=== PATIENT | male | born 1990 | race Caucasian/White ===

== ENCOUNTER 2017-07-26 08:52 | Emergency (ER) | payer OTHER ==
[2017-07-26] MEDS ORDERED: XYLOCAINE 1%/Epi 1:100000 MDV 20 ML IJ ONE (09:14)
--- NOTE | 2017-07-26 09:22 | ERPHSYRPT ---
- History of Present Illness Time Seen by Provider: 07/26/17 09:06 Source: patient, family () Patient Subjective Stated Complaint: pt states he noticed a red area to left upper arm 4 weeks ago. states it became better and then worse again. pt denies any injury. Triage Nursing Assessment: pt pink, warm, dry. pt has 3.5cm red area to left axilla. no drainage noted. no swelling to left upper arm. Physician History: CC: left armpit problems Hx: 27 y/o patient of Dr Pettit has redness, swelling, pain in left armpit. Worse over a month or better. No fever or chills. No other areas of swelling. Last tetanus vaccine 4 years ago. No allergies. Quality: painful Severity: mild Allergies/Adverse Reactions: No Known Drug Allergies Allergy (Verified 07/26/17 09:07) Home Medications: Omeprazole Magnesium [Prilosec Otc] 20 mg PO DAILY 01/05/17 [History] Hx Tetanus, Diphtheria Vaccination/Date Given: Yes (up to date) Hx Influenza Vaccination/Date Given: No Hx Pneumococcal Vaccination/Date Given: No Immunizations Up to Date: Yes - Review of Systems Constitutional: No Fever, No Chills Respiratory: No Cough Cardiac: No Chest Pain Skin: Skin Lesions (left axialla) Neurological: No Focal Weakness, No Parasthesia - Past Medical History Pertinent Past Medical History: Yes Neurological History: No Pertinent History ENT History: No Pertinent History Respiratory History: No Pertinent History Endocrine Medical History: No Pertinent History Musculoskeletal History: No Pertinent History GI Medical History: GERD Psycho-Social History: No Pertinent History - Past Surgical History Past Surgical History: Yes Other Surgical History: throat surgery - Social History Smoking Status: Current every day smoker How long have you smoked: 10 Exposure to second hand smoke: No Drug Use: none Patient Lives Alone: No - Nursing Vital Signs Nursing Vital Signs: Initial Vital Signs Temperature 98.2 F 07/26/17 09:01 Pulse Rate 83 07/26/17 09:01 Respiratory Rate 18 07/26/17 09:01 Blood Pressure 146/82 07/26/17 09:01 O2 Sat by Pulse Oximetry 96 07/26/17 09:01 Pain Scale Pain Intensity 5 - Physical Exam General Appearance: alert Eye Exam: PERRL/EOMI Ears, Nose, Throat Exam: normal ENT inspection, moist mucous membranes Neck Exam: supple Respiratory Exam: lungs clear Cardiovascular Exam: regular rate/rhythm Gastrointestinal/Abdomen Exam: soft, No tenderness, No distention Extremity Exam: normal inspection, normal range of motion Neurologic Exam: alert, oriented x 3, cooperative, No motor deficits Skin Exam: warm, dry, other (left axilla has red, indurated, fluctuant area likely abscess. Can not rule out node. ) Lymphatic Exam: No adenopathy, No inguinal node tender (L), No inguinal node tender (R) SpO2: 96 Oxygen Delivery: Room Air Procedures - Incision and Drainage Site: left axilla Anesthesia: 2% Lidocaine (with epi 3ml) Blade Size: scalpel I & D Procedure: betadine prep, sterile drapes applied, culture obtained Results: large amount pus (from small abscess which was visible on bedside sono prior to procedure. Minimal bleeding. No complications.) - Course Nursing assessment & vital signs reviewed: Yes Ordered Tests: Active Orders 24 hr Category Date Time Status Wound Care STAT Care 07/26/17 09:14 Active CULTURE,WOUND Stat Lab 07/26/17 09:15 Ordered Medication Summary Discontinued Medications Generic Name Dose Route Start Last Admin Trade Name Codey PRN Reason Stop Dose Admin Lidocaine/Epinephrine 5 ml 07/26/17 09:14 Xylocaine 1%/Epi 1:212710 Mdv 20 Ml IJ 07/26/17 09:15 STAT ONE Lidocaine/Epinephrine 5 ml 07/26/17 09:32 Xylocaine 2%-Epi 1:100,000 Mdv IJ 07/26/17 09:33 STAT ONE Lidocaine/Epinephrine Confirm 07/26/17 09:35 Xylocaine 2%-Epi 1:100,000 Mdv Administered 07/26/17 09:36 Dose 1 ml IJ .STK-MED ONE - Progress Progress Note: 07/26/17 09:21 Pt agrees for I&D. Discussed risks of bleeding, infection, injury to adjacent structures. Will need follow up. 07/26/17 10:05 Abscess instr given. Counseled pt/family regarding: diagnosis, need for follow-up - Departure Time of Disposition: 10:05 Departure Disposition: Home Clinical Impression: Cutaneous abscess of left axilla Condition: Stable Critical Care Time: No Referrals: EDIN PETTIT [Primary Care Provider] - Instructions: Methicillin-Resistant Staph Infection (MRSA), Incision and Drainage of a Skin Abscess Additional Instructions: Rx bactrim. Rx keflex. Warm compress and change dressing three times a day. Follow up with Dr Pettit as needed. Prescriptions: Cephalexin Mh 500 mg [Keflex 500 mg] 1 cap PO QID #40 capsule Smz/Tmp Ds Tablet [Bactrim Ds Tablet] 1 udtab PO BID #20 tablet
[2017-07-26] MEDS ORDERED: Xylocaine 2%-Epi 1:100,000 MDV IJ ONE ×2 (09:32→09:35)
[2017-07-26 10:19] VITALS: O2SAT 98
[2017-07-26 10:42] VITALS: BP 137/73; PULSE 68
== END 2017-07-26 10:42 | disposition home or self-care (01) ==
LOC: ED 08:52
PROC: 0H9CXZZ Drainage of Left Upper Arm Skin, External Approach (ICD-10-PCS; principal; 2017-07-26)
DX: L02.412 Cutaneous abscess of left axilla (principal)
CPT/HCPCS: 10060; 87070; 96372; 99284

== ENCOUNTER 2018-11-27 16:16 | Emergency (ER) | payer BC, OTHER ==
--- NOTE | 2018-11-27 16:52 | ERPHSYRPT ---
- History of Present Illness Time Seen by Provider: 11/27/18 16:40 Source: patient Exam Limitations: no limitations Patient Subjective Stated Complaint: back pain xc 1 hour [employer]..hx kidney stone.. has had frequency for the past 30 minutes Triage Nursing Assessment: alert and in no distress.. states back pain x 1 hour and frequency with urination. has hx kidney stone. denies injury to the back. Physician History: 28 y/o white male presents with flank pain and urinary frequency. pt has past h/ o ureterolithiasis. feels the same way. no abd pain. no n/v/d. Timing/Duration: hour(s) (1) Method of Injury: other (sudden onset) Quality: sharp, aching Back Pain Location: lumbar spine Severity of Pain-Max: moderate Severity of Pain-Current: mild Associated Symptoms: problems urinating, lower back pain, No fever, No constipation, No nausea, No vomiting Previous symptoms: same symptoms as today Allergies/Adverse Reactions: No Known Drug Allergies Allergy (Verified 07/26/17 09:07) Home Medications: Omeprazole Magnesium [Prilosec Otc] 20 mg PO DAILY 01/05/17 [History] Hx Tetanus, Diphtheria Vaccination/Date Given: Yes (up to date) Hx Influenza Vaccination/Date Given: No Hx Pneumococcal Vaccination/Date Given: No - Review of Systems Constitutional: No Symptoms Eyes: No Symptoms Ears, Nose, & Throat: No Symptoms Respiratory: No Symptoms Cardiac: No Symptoms, No Chest Pain, No Palpitations, No Syncope Abdominal/Gastrointestinal: No Symptoms, No Abdominal Pain, No Nausea, No Vomiting, No Diarrhea Genitourinary Symptoms: Frequency, Flank Pain Musculoskeletal: Back Pain Skin: No Symptoms Neurological: No Symptoms Psychological: No Symptoms Endocrine: No Symptoms Hematologic/Lymphatic: No Symptoms Immunological/Allergic: No Symptoms All Other Systems: Reviewed and Negative - Past Medical History Pertinent Past Medical History: Yes Neurological History: No Pertinent History ENT History: No Pertinent History Respiratory History: No Pertinent History Endocrine Medical History: No Pertinent History Musculoskeletal History: No Pertinent History GI Medical History: GERD Psycho-Social History: No Pertinent History - Past Surgical History Past Surgical History: Yes Neuro Surgical History: No Pertinent History Cardiac: No Pertinent History Respiratory: No Pertinent History Gastrointestinal: No Pertinent History Genitourinary: No Pertinent History Musculoskeletal: No Pertinent History Male Surgical History: No Pertinent History Other Surgical History: throat surgery - Social History Smoking Status: Never smoker How long have you smoked: 10 Exposure to second hand smoke: No Drug Use: none Patient Lives Alone: No - Nursing Vital Signs Nursing Vital Signs: Initial Vital Signs Temperature 98.2 F 11/27/18 16:42 Pulse Rate 87 11/27/18 16:42 Respiratory Rate 16 11/27/18 16:42 Blood Pressure 155/87 11/27/18 16:42 O2 Sat by Pulse Oximetry 97 11/27/18 16:42 Pain Scale Pain Intensity [Lower Back] 2 Pain Intensity 0 - Physical Exam General Appearance: no apparent distress, alert, anxiety Eye Exam: PERRL/EOMI, eyes nml inspection Ears, Nose, Throat Exam: normal ENT inspection, moist mucous membranes Neck Exam: normal inspection, non-tender, supple Respiratory Exam: normal breath sounds, lungs clear, airway intact, stridor, No chest tenderness, No respiratory distress, No accessory muscle use, No rhonchi, No wheezing Gastrointestinal Exam: soft, normal bowel sounds, No tenderness, No guarding, No rebound Rectal Exam: not done Back Exam: normal inspection, normal range of motion, CVA tenderness, No vertebral tenderness Extremity Exam: normal inspection, normal range of motion, pelvis stable Neurologic Exam: alert, oriented x 3, cooperative, crystalizer II-XII nml as tested Skin Exam: normal color, warm, dry Lymphatic Exam: No adenopathy SpO2 Interpretation: normal SpO2: 97 Oxygen Delivery: Room Air - Course Nursing assessment & vital signs reviewed: Yes Ordered Tests: Active Orders 24 hr Category Date Time Status UA W/RFX UR CULTURE Stat Lab 11/27/18 17:30 Completed Medication Summary Discontinued Medications Generic Name Dose Route Start Last Admin Trade Name Codey PRN Reason Stop Dose Admin Ketorolac Tromethamine 60 mg 11/27/18 18:13 11/27/18 18:24 Toradol 30 Mg Injection IM 11/27/18 18:14 60 mg STAT ONE Administration Ketorolac Tromethamine Confirm 11/27/18 18:22 Toradol 30 Mg Injection Administered 11/27/18 18:23 Dose 60 mg .ROUTE .STK-MED ONE Ondansetron HCl 4 mg 11/27/18 18:13 11/27/18 18:25 Zofran Odt 4 Mg PO 11/27/18 18:14 4 mg STAT ONE Administration Ondansetron HCl Confirm 11/27/18 18:22 Zofran Odt 4 Mg Administered 11/27/18 18:23 Dose 4 mg .ROUTE .STK-MED ONE Lab/Rad Data: Laboratory Results 11/27/18 Range/Units 17:30 Urine Color YELLOW (YELLOW) Urine Appearance SLIGHTLY CLOUDY (CLEAR) Urine pH 5.0 (5-6) Ur Specific Inez 1.018 (1.005-1.025) Urine Protein NEGATIVE (Negative) Urine Ketones NEGATIVE (NEGATIVE) Urine Blood MODERATE (0-5) Uzair/ul Urine Nitrite NEGATIVE (NEGATIVE) Urine Bilirubin NEGATIVE (NEGATIVE) Urine Urobilinogen NEGATIVE (0-1) mg/dL Ur Leukocyte Esterase NEGATIVE (NEGATIVE) Urine WBC (Auto) 3-5 (0-5) /HPF Urine RBC (Auto) 51-100 (0-2) /HPF U Hyaline Cast (Auto) 0-2 (0-2) /LPF U Epithel Cells (Auto) NONE (FEW) /HPF Urine Bacteria (Auto) NONE (NEGATIVE) /HPF Urine Mucus (Auto) SLIGHT (NEGATIVE) /HPF Urine Culture Reflexed NO (NO) Urine Glucose NEGATIVE (NEGATIVE) mg/dL - Progress Progress: improved Progress Note: 11/27/18 18:37 pt now states his pain has completely resolved. he refuses ct scan as he has to get to work. however, he accept im toradol and po zofran. Counseled pt/family regarding: diagnosis, need for follow-up - Departure Time of Disposition: 18:39 Departure Disposition: Home Clinical Impression: Flank pain, Hematuria Condition: Stable Critical Care Time: No Referrals: EDIN RAMSAY [Primary Care Provider] - Additional Instructions: drink plenty of clear liquids. use ibuprofen as discussed for pain. follow up with primary doctor as needed
[2018-11-27 17:39] LABS: Appearance SLIGHTLY CLOUDY (CLEAR); Bilirubin NEGATIVE (NEGATIVE); Blood MODERATE Ery/ul (0-5); Glucose NEGATIVE (NEGATIVE); Ketones NEGATIVE (NEGATIVE); Leukocyte Esterase NEGATIVE (NEGATIVE); Nitrite NEGATIVE (NEGATIVE); Protein,Urine Dip NEGATIVE (Negative); Specific Gravity 1.018 (1.005-1.025); Urobilinogen NEGATIVE mg/dL (0-1)
[2018-11-27 18:00] VITALS: BP 139/88; PULSE 76
[2018-11-27] MEDS ORDERED: ZOFRAN ODT 4 MG PO ONE (18:13)
[2018-11-27] MEDS ORDERED: TORAdol 30 mg Injection IM ONE (18:13)
[2018-11-27] MEDS ORDERED: TORAdol 30 mg Injection ONE (18:22)
[2018-11-27] MEDS ORDERED: ZOFRAN ODT 4 MG ONE (18:22)
[2018-11-27 18:37] VITALS: O2SAT 97
== END 2018-11-27 18:52 | disposition home or self-care (01) ==
LOC: ED 16:16
DX: R10.9 Unspecified abdominal pain (principal); R31.9 Hematuria, unspecified; M54.5 Low back pain; Z79.899 Other long term (current) drug therapy
CPT/HCPCS: 81001; 96372; 99284; J1885; Q0162